=== PATIENT | female | born 1985 | race Caucasian/White ===

== ENCOUNTER 2021-10-11 16:37 | Outpatient (CLI) | payer OTHER | END 2021-10-11 17:32 | disposition home or self-care (01) | LOC: NST 16:37 | PROVIDERS: ATTEND Obstetrics & Gynecology | DX: Z34.83 Encounter for supervision of other normal pregnancy, third trimester (principal) ==

== ENCOUNTER 2021-10-18 14:45 | Outpatient (CLI) | payer OTHER | END 2021-10-18 15:35 | disposition home or self-care (01) | LOC: NST 14:45 | PROVIDERS: ATTEND Obstetrics & Gynecology Gynecology | DX: Z34.83 Encounter for supervision of other normal pregnancy, third trimester (principal) ==

== ENCOUNTER 2021-10-28 14:16 | Outpatient (CLI) | payer OTHER | END 2021-10-28 14:53 | disposition home or self-care (01) | LOC: NST 14:16 | PROVIDERS: ATTEND Obstetrics & Gynecology Gynecology | DX: Z34.93 Encounter for supervision of normal pregnancy, unspecified, third trimester (principal); Z3A.36 36 weeks gestation of pregnancy ==

== ENCOUNTER 2021-11-06 01:49 | Inpatient (IN) | payer OTHER ==
[~2021-11-06] VITALS: Ht 180.3 cm; Wt 100.2 kg
[2021-11-06] MEDS ORDERED: IRON236 MG PO (02:35)
[2021-11-06] MEDS ORDERED: PRENATAL TABLE1 EAC3 PO (02:35)
== END 2021-11-08 13:51 | disposition home or self-care (01) | DRG 807 ==
LOC: LDR 01:49 → OB/GYN 01:49 → LDR 08:01 → OB/GYN 17:18
PROVIDERS: ADMIT Obstetrics & Gynecology Maternal & Fetal Medicine; ATTEND Obstetrics & Gynecology Maternal & Fetal Medicine
PROC: 10E0XZZ Delivery of Products of Conception, External Approach (ICD-10-PCS; principal; 2021-11-06)
PROC: 0KQM0ZZ Repair Perineum Muscle, Open Approach (ICD-10-PCS; 2021-11-06)
PROC: 0W8NXZZ Division of Female Perineum, External Approach (ICD-10-PCS; 2021-11-06)
PROC: 4A1HXCZ Monitoring of Products of Conception, Cardiac Rate, External Approach (ICD-10-PCS; 2021-11-06)
DX: O70.1 Second degree perineal laceration during delivery (principal); Z37.0 Single live birth; Z3A.37 37 weeks gestation of pregnancy; Z20.822 Contact with and (suspected) exposure to COVID-19